=== PATIENT | male | born 1980 | race Caucasian/White ===

== ENCOUNTER 2016-12-30 19:16 | Emergency (ER) | payer OTHER ==
[~2016-12-30] VITALS: Ht 177.8 cm; Wt 72.6 kg
--- NOTE | 2016-12-30 19:17 | NUR ---
Patient BIBA BLS, transferred to bed 6. RN evaluating patient at bedside.
[2016-12-30 19:24] VITALS: BP 120/76
--- NOTE | 2016-12-30 19:30 | NUR ---
BIBA C/O ETOH, WITH NAUSEA. HE DRINK 1 1/2BOTTLE OF WINE ALL DAY. [facility]. PATIENT ALERT AWAKE ORIENTED . SKIN IS PINK/WARM/DRY; AAOX4 WITH EVEN AND STEADY GAIT; LUNGS CLEAR BL; HR EVEN AND REGULAR; PT DENIES ANY FEVER, CP, SOB, OR COUGH AT THIS TIME; PATIENT STATES PAIN OF 0/10 AT THIS TIME; VSS; PATIENT POSITIONED FOR COMFORT; HOB ELEVATED; BEDRAILS UP X2; BED DOWN. ER MD MADE AWARE OF PT STATUS.
--- NOTE | 2016-12-30 22:05 | NUR ---
PT CONTINUES TO SLEEP, NO DISTRESS NOTED AT THIS TIME.
--- NOTE | 2016-12-30 22:20 | NUR ---
OK PER PT TO CALL HIS MOM NASRIN TO COME AND PICK HIM UP. OK PER DR BONDS TO CALL FOR [facility] [employer] [employer] AT THIS TIME. MOM NASRIN PH # [phone]. SPOKE WITH MOM, SHE IS ON HER WAY.
[2016-12-30 22:45] VITALS: BP 123/72
--- NOTE | 2016-12-30 22:45 | NUR ---
Patient discharged with v/s stable. Written and verbal after care instructions given and explained. Patient verbalized understanding. Ambulatory with steady gait. All questions addressed prior to discharge. Advised to follow up with PMD.
== END 2016-12-30 22:45 | disposition home or self-care (01) ==
LOC: MED 19:16
DX: F10.129 Alcohol abuse with intoxication, unspecified (principal); F17.200 Nicotine dependence, unspecified, uncomplicated

== ENCOUNTER 2021-10-11 12:43 | Emergency (ER) | payer MEDICAID ==
[~2021-10-11 12:43] MED LIST: PRED20TA5 PO
--- NOTE | 2021-10-11 13:10 | NUR ---
PATIENT LEFT WITHOUT BEING SEEN BY DR. HILL. NO FURTHER CARE PROVIDED FOR PATIENT. 1325-2ND CALL N/A 1350-3DR CALL N/A
== END 2021-10-11 13:10 | disposition left against medical advice (07) ==
LOC: MED 12:43
DX: F10.20 Alcohol dependence, uncomplicated (principal); Z53.21 Procedure and treatment not carried out due to patient leaving prior to being seen by health care provider

== ENCOUNTER 2021-10-18 21:30 | Emergency (ER) | payer MEDICAID ==
[~2021-10-18] VITALS: Ht 175.3 cm; Wt 81.6 kg
[2021-10-18 22:10] VITALS: BP 133/85
--- NOTE | 2021-10-19 05:40 | NUR ---
PATIENT ELOPED FROM FACILITY. DISCHARGE INSTRUCTIONS NOT GIVEN TO PATIENT. DR. CARBONE NOTIFIED.
--- NOTE | 2021-10-19 05:40 | NUR ---
PER DEIDRA, PT LEFT LOBBY WITH FAMILY MEMBER
== END 2021-10-19 05:40 | disposition home or self-care (01) ==
LOC: MED 21:30
DX: F10.129 Alcohol abuse with intoxication, unspecified (principal); Z79.899 Other long term (current) drug therapy
CPT/HCPCS: 99281